=== PATIENT | female | born 1955 | race Caucasian/White ===

== ENCOUNTER → 2018-07-27 | Emergency (ER) | payer OTHER ==
[~2018-07-27] VITALS: Ht 170.2 cm; Wt 91.0 kg
[~2018-07-27] MED LIST: IBUP-1985 PO; METH-360 PO; ketorolac tromethamine 15mg/ml inj. IM ONE; orphenadrine citrate 60mg/2ml inj. IM ONE
[2018-07-27 09:34] VITALS: BP 158/99
== END | disposition home or self-care (01) ==
LOC: ER 09:29
DX: M25.512 Pain in left shoulder (principal); Z79.899 Other long term (current) drug therapy; Z98.890 Other specified postprocedural states; X58.XXXA Exposure to other specified factors, initial encounter; Y93.89 Activity, other specified; Y92.89 Other specified places as the place of occurrence of the external cause; Y99.8 Other external cause status
CPT/HCPCS: 73030; 96372; 99283; J1885; J2360

== ENCOUNTER 2018-07-30 15:45 | Outpatient (CLI) | payer OTHER ==
[~2018-07-30 15:45] MED LIST changes: -ketorolac tromethamine 15mg/ml inj. IM ONE; -orphenadrine citrate 60mg/2ml inj. IM ONE
[2018-07-30] MEDS ORDERED: gadopentetate dimeglumine 10 MMOL/20 ML syringe IV ONE (17:44)
[2018-08-02] MEDS ORDERED: NAPR-56 PO (15:05)
== END 2018-07-30 23:59 | disposition home or self-care (01) ==
LOC: RAD 15:45
PROVIDERS: ATTEND Nurse Practitioner Family
DX: M75.32 Calcific tendinitis of left shoulder (principal); M62.81 Muscle weakness (generalized); M89.312 Hypertrophy of bone, left shoulder
CPT/HCPCS: 73223; A9579

== ENCOUNTER 2018-08-04 13:37 | Outpatient (CLI) | payer OTHER ==
[2018-08-04 13:36] VITALS: BP 152/96
[~2018-08-04 13:37] MED LIST changes: +NAPR-56 PO
== END 2018-08-04 15:00 | disposition home or self-care (01) ==
LOC: ORTHO 13:37
PROVIDERS: ATTEND Orthopaedic Surgery
DX: M75.52 Bursitis of left shoulder (principal); M75.32 Calcific tendinitis of left shoulder; Z98.890 Other specified postprocedural states
CPT/HCPCS: 99213

== ENCOUNTER 2018-09-23 11:43 | Outpatient (CLI) | payer OTHER ==
[~2018-09-23 11:43] MED LIST changes: -NAPR-56 PO
== END 2018-09-23 12:25 | disposition home or self-care (01) ==
LOC: ORTHO 11:43
PROVIDERS: ATTEND Orthopaedic Surgery
DX: M75.102 Unspecified rotator cuff tear or rupture of left shoulder, not specified as traumatic (principal)
CPT/HCPCS: G0463

== ENCOUNTER → 2018-11-04 | Outpatient (CLI) | payer OTHER ==
[2018-11-04 12:21] VITALS: BP 142/78
== END | disposition home or self-care (01) ==
LOC: ORTHO 11:40
PROVIDERS: ATTEND Orthopaedic Surgery
DX: M75.100 Unspecified rotator cuff tear or rupture of unspecified shoulder, not specified as traumatic (principal)
CPT/HCPCS: G0463

== ENCOUNTER 2019-05-10 09:16 | Outpatient (CLI) | payer OTHER ==
[2019-05-10 10:07] LABS: BASOPHILS % (AUTO) 0.8 % (0-1); EOSINOPHILS # (AUTO) 0.1 X10'3 (0-0.9); EOSINOPHILS % (AUTO) 1.1 % (0-6); HEMATOCRIT 42.9 % (35.0-45.0); HEMOGLOBIN 14.1 g/dl (12.0-16.0); LYMPHOCYTES # (AUTO) 1.4 X10'3 (1.1-4.8); LYMPHOCYTES % (AUTO) 26.4 % (21-51); MEAN CORPUSCULAR HEMOGLOBIN 29.2 PG (27.0-31.0); MEAN CORPUSCULAR HGB CONC 32.9 g/dL (33.0-36.5); MEAN CORPUSCULAR VOLUME 88.7 FL (78-98); MEAN PLATELET VOLUME 8.4 FL (7.4-10.4); MONOCYTES # (AUTO) 0.7 X10'3 (0-0.9); MONOCYTES % (AUTO) 13.5 % (2-12); NEUTROPHILS # (AUTO) 3.1 X10'3 (1.8-7.7); NEUTROPHILS % (AUTO) 58.2 % (42-75); PLATELET COUNT 297 X10'3 (140-440); RED BLOOD COUNT 4.84 X10'6 (4.20-5.60); RED CELL DISTRIBUTION WIDTH 13.9 % (11.5-14.5); WHITE BLOOD COUNT 5.4 X10'3 (4.5-11.0)
[2019-05-10 10:27] LABS: ALANINE AMINOTRANSFERASE 24 U/L (12-78); ALBUMIN 3.6 G/DL (3.4-5.0); ALBUMIN/GLOBULIN RATIO 0.9 (1.1-1.5); ALKALINE PHOSPHATASE 61 IU/L (46-116); ANION GAP 6 (8-16); ASPARTATE AMINO TRANSFERASE 18 U/L (10-37); BILIRUBIN,TOTAL 0.3 MG/DL (0.1-1.0); BLOOD UREA NITROGEN 23 MG/DL (7-18); BUN/CREATININE RATIO 25.8 (6.6-38.0); CALCIUM 8.8 MG/DL (8.5-10.1); CHLORIDE 107 MMOL/L (99-107); CHOL/HDL RATIO 3.5 (0.00-4.99); CHOLESTEROL 202 MG/DL (0-200); CREATININE 0.89 MG/DL (0.40-0.90); GLUCOSE 95 MG/DL (70-104); HDL CHOLESTEROL 57 MG/DL (35-60); LDL CHOLESTEROL 135 MG/DL (50-100); POTASSIUM 4.3 MMOL/L (3.5-5.1); SODIUM 140 MMOL/L (135-145); TOTAL PROTEIN 7.5 G/DL (6.4-8.2); TRIGLYCERIDES 28 MG/DL (20-135); eGFR 64 ML/MIN
== END 2019-05-10 23:59 | disposition home or self-care (01) ==
LOC: LAB 09:16
PROVIDERS: ATTEND Family Medicine
DX: E66.9 Obesity, unspecified (principal)
CPT/HCPCS: 36415; 80053; 80061; 84443; 85025

== ENCOUNTER 2019-08-31 07:23 | Day surgery (SDC) | payer BC, OTHER ==
[~2019-08-31] VITALS: Ht 170.2 cm; Wt 88.6 kg
[2019-08-31 07:34] VITALS: BP 152/87
[2019-08-31] MEDS ORDERED: MULT-1085 PO (07:38)
[2019-08-31] MEDS ORDERED: LIDOcaine Viscous 15ml cup ONE (07:42)
[2019-08-31] MEDS ORDERED: MIDAZolam 5mg/5ml vial ONE (07:42)
[2019-08-31] MEDS ORDERED: fentaNYL/PF 50MCG/1 ML 2ML syringe ONE (07:42)
[2019-08-31 09:39] VITALS: BP 135/76
[2019-08-31 09:49] VITALS: BP_SYST 124; BP_SYST 130; BP_DIAS 73; BP_DIAS 79
[2019-08-31 10:09] VITALS: BP 123/74
== END 2019-08-31 10:35 | disposition home or self-care (01) ==
LOC: GI LAB 07:23
PROVIDERS: ATTEND Internal Medicine Gastroenterology
DX: Z12.11 Encounter for screening for malignant neoplasm of colon (principal); D12.5 Benign neoplasm of sigmoid colon; K62.1 Rectal polyp; K64.8 Other hemorrhoids
CPT/HCPCS: 45380; 45385; 99152; 99153; C1773; J2250; J3010; J7040; A4620

== ENCOUNTER 2019-11-01 09:43 | Emergency (ER) | payer OTHER ==
[~2019-11-01] VITALS: Ht 167.6 cm; Wt 86.4 kg
[~2019-11-01 09:43] MED LIST changes: -IBUP-1985 PO; -METH-360 PO; +MULT-1085 PO
[2019-11-01 09:50] VITALS: BP 135/88
[2019-11-01] MEDS ORDERED: ketorolac tromethamine 15mg/ml inj. IM ONE (11:15)
[2019-11-01] MEDS ORDERED: METH-360 PO (11:18)
== END 2019-11-01 11:41 | disposition home or self-care (01) ==
LOC: ER 09:43 → EEVIPCON 09:43 → ER 11:41
DX: S39.012A Strain of muscle, fascia and tendon of lower back, initial encounter (principal); Z79.899 Other long term (current) drug therapy; X50.1XXA Overexertion from prolonged static or awkward postures, initial encounter; Y93.89 Activity, other specified; Y92.89 Other specified places as the place of occurrence of the external cause; Y99.8 Other external cause status
CPT/HCPCS: 96372; 99283; J1885

== ENCOUNTER 2020-10-29 05:53 | Outpatient (CLI) | payer BC ==
[~2020-10-29 05:53] MED LIST changes: +METH-360 PO
[2020-10-29 06:54] LABS: ALANINE AMINOTRANSFERASE 27 U/L (12-78); ALBUMIN 3.5 G/DL (3.4-5.0); ALBUMIN/GLOBULIN RATIO 0.9 (1.1-1.5); ALKALINE PHOSPHATASE 83 IU/L (46-116); ANION GAP 11 (8-16); ASPARTATE AMINO TRANSFERASE 13 U/L (10-37); BASOPHILS % (AUTO) 0.7 % (0-1); BILIRUBIN,TOTAL 0.3 MG/DL (0.1-1.0); BLOOD UREA NITROGEN 21 MG/DL (7-18); BUN/CREATININE RATIO 21.4 (6.6-38.0); CALCIUM 8.7 MG/DL (8.5-10.1); CHLORIDE 109 MMOL/L (99-107); CHOL/HDL RATIO 4.3 (0.00-4.99); CHOLESTEROL 221 MG/DL (0-200); CREATININE 0.98 MG/DL (0.40-0.90); EOSINOPHILS # (AUTO) 0.1 X10'3 (0-0.9); EOSINOPHILS % (AUTO) 2.3 % (0-6); GLUCOSE 96 MG/DL (70-104); HDL CHOLESTEROL 52 MG/DL (35-60); HEMOGLOBIN 13.8 g/dl (12.0-16.0); LDL CHOLESTEROL 141 MG/DL (50-100); LYMPHOCYTES # (AUTO) 1.8 X10'3 (1.1-4.8); LYMPHOCYTES % (AUTO) 32.4 % (21-51); MEAN CORPUSCULAR HEMOGLOBIN 29.9 PG (27.0-31.0); MEAN CORPUSCULAR VOLUME 90.7 FL (78-98); MEAN PLATELET VOLUME 8.4 FL (7.4-10.4); MONOCYTES # (AUTO) 0.8 X10'3 (0-0.9); MONOCYTES % (AUTO) 14.8 % (2-12); NEUTROPHILS # (AUTO) 2.8 X10'3 (1.8-7.7); NEUTROPHILS % (AUTO) 49.8 % (42-75); PLATELET COUNT 315 X10'3 (140-440); POTASSIUM 4.6 MMOL/L (3.5-5.1); RED BLOOD COUNT 4.63 X10'6 (4.20-5.60); RED CELL DISTRIBUTION WIDTH 13.7 % (11.5-14.5); SODIUM 144 MMOL/L (135-145); TOTAL CARBON DIOXIDE 24.3 MMOL/L (24-32); TOTAL PROTEIN 7.6 G/DL (6.4-8.2); TRIGLYCERIDES 64 MG/DL (20-135); WHITE BLOOD COUNT 5.5 X10'3 (4.5-11.0); eGFR 57 ML/MIN
[2020-10-29 07:36] LABS: HEMOGLOBIN A1C 5.9 % (4.5-6.2)
== END 2020-10-29 23:59 | disposition home or self-care (01) ==
LOC: LAB 05:53
PROVIDERS: ATTEND Family Medicine
DX: M54.5 Low back pain (principal); E74.39 Other disorders of intestinal carbohydrate absorption
CPT/HCPCS: 36415; 80053; 80061; 83036; 85025

== ENCOUNTER → 2020-12-06 | Outpatient (CLI) | payer BC ==
[2020-12-06] VITALS (7 sets, daily range): BP systolic 121–150; BP diastolic 74–87
[~2020-12-06] VITALS: Ht 182.9 cm; Wt 90.7 kg
[~2020-12-06] MED LIST changes: +aminophylline 250mg/10ml inj. IV PRN; +metoprolol tartrate 1mg/ml inj IV PRN; +nitroGLYCERIN 0.4mg SUBLingual tab SL PRN; +regadenoson 0.4mg/5ml syringe IV PRN
== END | disposition home or self-care (01) ==
LOC: RAD 09:15
PROVIDERS: ATTEND Internal Medicine Cardiovascular Disease
DX: R07.9 Chest pain, unspecified (principal)
CPT/HCPCS: 78452; 93017; A9500; J0280; J2785